=== PATIENT | male | born 1965 | race Caucasian/White ===

== ENCOUNTER → 2018-03-29 08:25 | Outpatient (CLI) | payer OTHER, SELFPAY ==
[2018-03-29 10:08] LABS: BUN Creatinine Ratio 21.8 (6-22); Blood Urea Nitrogen 24 mg/dL (9-20); Calcium 9.1 mg/dL (8.4-10.2); Carbon Dioxide 26 mmol/L (22-32); Chloride 104 mmol/L (98-107); Cholesterol 238 mg/dL (140-199); Estimated Glomerular Filt Rate > 60.0 mL/min (>60); Glucose 92 mg/dL (70-100); HDL Cholesterol 60 mg/dL (40-60); HEMOLYSIS < 15 (0-50); LDL Cholesterol Calculated 151 mg/dL (<100); Potassium 4.4 mmol/L (3.4-5.1); Sodium 143 mmol/L (137-145); Triglycerides 134 mg/dL (35-150)
[2018-03-29 10:39] LABS: TSH w/ Reflex to FT4 2.01 uIU/mL (0.47-4.68)
== END ==
PROVIDERS: PCP Internal Medicine; Visit Provider Internal Medicine
DX: I10 Essential (primary) hypertension (principal); Z12.5 Encounter for screening for malignant neoplasm of prostate; E78.5 Hyperlipidemia, unspecified
CPT/HCPCS: 36415; 80048; 80061; 84153; 84443

== ENCOUNTER 2018-08-04 09:18 | Day surgery (SDC) | payer OTHER, SELFPAY ==
--- NOTE | 2018-08-04 | PATH_ITS ---
[facility] Accession Number: [id number] . 01 Material submitted: . rectum - RECTUM POLYP . 02 Diagnosis: Biopsy, Rectal Polyp: Tubular adenoma involving both biopsy fragments. V/08/07/2018 . 02 Electronically signed: . Jeovanny Gonzalez MD, Pathologist NPI- [id number] . 01 Gross description: . RECTUM POLYP: Received in formalin are 2 fragment(s) of harrell, soft tissue measuring 0.1 x 0.1 x 0.1 cm to 0.3 x 0.2 x 0.2 cm which is entirely submitted and submitted entirely in 1 cassette(s) /DMC /DMC . 02 Pathologist provided ICD-10: D12.8 . 02 CPT . 986571 Performed at: 01 [facility] [address] [id number] MD Jimi Franco MD Phone: [phone] Performed at: 02 [facility] [address] [place], [place] [id number] MD Ashley Mckinney MD Phone: [phone]
[2018-08-04 10:04] VITALS: BP 153/104; PULSE 86; RESP 16; TEMP 36.8; O2SAT 98; BMI 26.4
[2018-08-04] MEDS: SODIUM CHLORIDE 0.9% 1,000 ML 200 ML IV (10:39)
--- NOTE | 2018-08-04 11:11 | P.HP_ITS ---
History of Present Illness Date Patient Seen: 08/04/18 Time Patient Seen: 11:00 Chief complaint: [id number] SCREENING COLONOSCOPY Narrative: Patient is a gentleman here for screening colonoscopy. He had a polyp removed 5 years ago. No family history of colon cancer. Patient History Social History household members: spouse Family & Social History Social History: household members spouse Meds Home Medications Medication Instructions Recorded Confirmed Type No Known Home Medications 08/04/18 08/04/18 History Allergies Allergy/AdvReac Type Severity Reaction Status Date / Time No Known Drug Allergies Allergy Verified 08/04/18 09:59 Review of Systems Review of Systems All systems reviewed & are unremarkable except as noted in HPI and below Exam Vital Signs (past 8 hours): - 08/04/18 10:04 Temperature 98.2 F Pulse Rate 86 Respiratory Rate 16 Blood Pressure 153/104 H Pulse Oximetry 98 Oxygen Delivery Method Room Air Narrative Exam Narrative: Pleasant cooperative patient no apparent distress. Lungs are clear to auscultation. No rales or rhonchi. Heart regular rate and rhythm no murmur gallop. Abdomen is soft nontender without mass. No obvious hernias. Patient is alert and oriented x3. Assessment & Plan Assessment & Plan narrative: The patient for a screening colonoscopy. I have di scussed the procedure with them. Risks of bleeding, perforation which would necessitate major operation, failure to find remove all lesions, the potential tattoo were all discussed. All questions were answered. They wished to proceed.
--- NOTE | 2018-08-04 11:11 | PM.PREOP ---
Pre-operative Note Interval Note History & Physical reviewed/Exam performed by Physician: Yes Changes to H&P: No ASA Class (for procedural sedation): I
[2018-08-04] MEDS: MIDAZOLAM 5 MG/5 ML VIAL IV (11:32)
--- NOTE | 2018-08-04 11:32 | PM.OP.ENDO ---
Operative Date/Time/Diagnoses Date of procedure: 08/04/18 Time of procedure: 11:32 Pre-op diagnosis: Screening exam. History of polyps. Last colonoscopy 5 years ago. Post-op diagnosis: same (One polyp in the rectum.) Procedure & Clinicians Study performed: Colonoscopy with cold biopsy Same procedure as scheduled: Yes Indications: Screening Surgeon: Christo Carter Procedure Notes SCOAP/Timeout: Performed Procedure in detail: The patient was placed in the left lateral decubitus position and underwent IV sedation directed by the surgeon consisting of fentanyl and Versed. Digital exam was unremarkable. Prostate is normal in size. The scope was inserted and advanced through the rectum into the sigmoid, descending, transverse, and ascending colon. No lesions were seen. The cecum was reached identified by the ileocecal valve and the appendiceal opening. The scope was gradually brought out. One Polyp was found at 10 cm from the anal verge in the rectum . It was quite small and completely removed with cold biopsy forceps.. The scope ultimately was retroflexed in the rectum. The appearance was normal. The scope was removed and the patient tolerated the procedure well. prep was very good Scope withdrawal time: 11 minutes Sedation minutes: 18 Findings: polyp (One small polyp in the rectum) Specimen(s): other (Polyp) Complications: none Recommendations: Colonscopy in 5 years Follow up: as needed Disposition: PACU
[2018-08-04] MEDS: fentaNYL 250 MCG/5 ML INJ IV (11:33)
[2018-08-04 11:35] VITALS: BP 143/100; PULSE 90; RESP 16; O2SAT 94
[2018-08-04 11:38] VITALS: BP 164/81; PULSE 90; RESP 17; O2SAT 94
[2018-08-04 11:55] VITALS: BP 129/91; PULSE 79; TEMP 36.1; O2SAT 95
== END 2018-08-04 12:01 | disposition home or self-care (01) ==
PROVIDERS: PCP Internal Medicine; Visit Provider Specialist
PROC: 0DJD8ZZ Inspection of Lower Intestinal Tract, Via Natural or Artificial Opening Endoscopic (ICD-10-PCS; CPT 45378; principal; 2018-08-04 10:45)
DX: Z86.010 Personal history of colon polyps (principal); D12.8 Benign neoplasm of rectum
CPT/HCPCS: 45380; 99152; J2250; J3010

== ENCOUNTER → 2020-02-22 08:27 | Outpatient (CLI) | payer OTHER, SELFPAY ==
[2020-02-22 10:06] LABS: BUN Creatinine Ratio 17.9 (6-22); Blood Urea Nitrogen 20 mg/dL (9-20); Calcium 9.1 mg/dL (8.4-10.2); Carbon Dioxide 27 mmol/L (22-32); Chloride 108 mmol/L (98-107); Cholesterol 205 mg/dL (140-199); Estimated Glomerular Filt Rate > 60.0 mL/min (>60); Glucose 101 mg/dL (70-100); HDL Cholesterol 52 mg/dL (40-60); HEMOLYSIS < 15 (0-50); LDL Cholesterol Calculated 122 mg/dL (<100); Potassium 4.4 mmol/L (3.4-5.1); Sodium 139 mmol/L (137-145); Triglycerides 154 mg/dL (35-150)
[2020-02-22 10:42] LABS: TSH w/ Reflex to FT4 1.92 uIU/mL (0.47-4.68)
[2020-02-23 07:27] LABS: PSA, Total 0.7 ng/mL (0.0-4.0)
== END ==
PROVIDERS: PCP Internal Medicine; Referring Provider Internal Medicine; Visit Provider Internal Medicine
DX: Z00.00 Encounter for general adult medical examination without abnormal findings (principal); I10 Essential (primary) hypertension; E78.5 Hyperlipidemia, unspecified
CPT/HCPCS: 36415; 80048; 80061; 84153; 84154; 84443

== ENCOUNTER → 2020-10-30 11:19 | Outpatient (CLI) | payer OTHER, SELFPAY ==
--- NOTE | 2020-10-30 | DI.RAD.S_ITS ---
PROCEDURE: XR ANKLE LT MIN 3V INDICATIONS: Pain in left ankle and joints of left foot TECHNIQUE: 3 views of the ankle were acquired. COMPARISON: None. FINDINGS: Bones: The medial malleolus has a osseous density just distal to the medial malleolar tip with no overlying soft tissue swelling probably related to a remote avulsion. No other fractures or dislocations. Ankle mortise is normally aligned. No suspicious bony lesions. Soft tissues: No tibiotalar joint effusion. Achilles tendon appears normal. IMPRESSION: Osseous density just distal to the medial malleolar tip possibly an an acute versus remote avulsion fracture, please correlate with point tenderness. Dictated by: Flo Shah M.D. on 10/30/2020 at 15:40 Approved by: Flo Shah M.D. on 10/30/2020 at 15:43
== END ==
PROVIDERS: PCP Internal Medicine; Referring Provider Internal Medicine; Visit Provider Internal Medicine
DX: M25.572 Pain in left ankle and joints of left foot (principal); G89.29 Other chronic pain
CPT/HCPCS: 73610

== ENCOUNTER → 2023-05-11 09:58 | Outpatient (CLI) | payer OTHER, SELFPAY ==
[2023-05-11 11:02] LABS: Add Manual Diff / Slide Review NO; Basophils Absolute Auto 0 /uL (0-100); Basophils Percent Auto 0.4 % (0-2); Eosinophils Absolute Auto 100 /uL (0-450); Eosinophils Percent Auto 1.2 % (2-4); Hematocrit 44.5 % (41-53); Hemoglobin 15.1 g/dL (13.5-17.5); Lymphocytes Absolute Auto 1900 /uL (1100-4500); Lymphocytes Percent Auto 28.3 % (25-40); Mean Corpuscular HGB Conc 33.8 % (30-36); Mean Corpuscular Hemoglobin 30.3 PG (26-34); Mean Corpuscular Volume 89.6 fL (80-100); Monocytes Absolute Auto 600 /uL (0-900); Monocytes Percent Auto 8.1 % (3-14); Neutrophils Absolute Auto 4200 /uL (1500-7000); Platelet Count 303 X10^3/uL (150-400); Red Blood Cell Count 4.96 X10^6/uL (4.5-5.9); Red Cell Distribution Width 12.8 % (11.6-14.8); White Blood Cell Count 6.8 X10^3/uL (4.5-11.0)
[2023-05-11 11:25] LABS: Alanine Aminotransferase 27 IU/L (<50); Albumin 4.6 g/dL (3.5-5.0); Albumin Globulin Ratio 1.5 (1.0-2.8); Alkaline Phosphatase 54 U/L (38-126); Aspartate Aminotransferase 30 IU/L (17-59); BUN Creatinine Ratio 18.5 (6-22); Blood Urea Nitrogen 20 mg/dL (9-20); Calcium 9.8 mg/dL (8.4-10.2); Carbon Dioxide 25 mmol/L (22-32); Chloride 104 mmol/L (98-107); Cholesterol 155 mg/dL (140-199); Estimated Glomerular Filt Rate > 60 mL/min (>60); Glucose 97 mg/dL (80-110); HDL Cholesterol 67 mg/dL (40-60); HEMOLYSIS < 15 (0-50); LDL Cholesterol Calculated 68 mg/dL (<100); Potassium 4.8 mmol/L (3.4-5.1); Sodium 138 mmol/L (137-145); Total Protein 7.6 g/dL (6.3-8.2); Triglycerides 101 mg/dL (35-150)
[2023-05-11 11:28] LABS: High Sensitivity CRP - Cardiac 0.7 mg/L (1.0-3.0)
[2023-05-11 11:52] LABS: Prostate Specific Antigen 3.99 ng/mL (0.10-4.00)
[2023-05-14 07:58] LABS: PSA Free % 19.7 % (.); PSA, Total 2.9 ng/mL (0.0-4.0)
== END ==
LOC: LAB 10:02
PROVIDERS: PCP Family Medicine; Referring Provider Family Medicine; Visit Provider Family Medicine
DX: Z00.00 Encounter for general adult medical examination without abnormal findings (principal); E78.5 Hyperlipidemia, unspecified; N52.9 Male erectile dysfunction, unspecified; I10 Essential (primary) hypertension
CPT/HCPCS: 36415; 80053; 80061; 84153; 84154; 85025; 86140

== ENCOUNTER → 2024-06-28 09:15 | Outpatient (CLI) | payer BC, SELFPAY ==
[2024-06-28 10:29] LABS: HEMOLYSIS < 15 (0-50)
[2024-06-28 10:37] LABS: Alanine Aminotransferase 32 IU/L (<50); Albumin 4.8 g/dL (3.5-5.0); Albumin Globulin Ratio 1.5 (1.0-2.8); Alkaline Phosphatase 63 U/L (38-126); Aspartate Aminotransferase 38 IU/L (17-59); BUN Creatinine Ratio 15.2 (6-22); Bilirubin Total 3.2 mg/dL (0.2-1.3); Blood Urea Nitrogen 21 mg/dL (9-20); Carbon Dioxide 28 mmol/L (22-32); Chloride 101 mmol/L (98-107); Cholesterol 216 mg/dL (140-199); Estimated Glomerular Filt Rate 58 mL/min (>60); Globulin 3.2 g/dL (1.7-4.1); Glucose 99 mg/dL (80-110); HDL Cholesterol 86 mg/dL (40-60); LDL Cholesterol Calculated 104 mg/dL (<100); Potassium 4.8 mmol/L (3.4-5.1); Sodium 139 mmol/L (137-145); Triglycerides 129 mg/dL (35-150)
[2024-06-28 10:48] LABS: Gamma Glutamyl Transpeptidase 29 U/L (15-73)
[2024-06-28 12:15] LABS: Prostate Specific Antigen Scrn 5.18 ng/mL (0.1-4.0)
[2024-06-29 03:39] LABS: CRP, High Sensitivity 0.94 mg/L (0.00-3.00)
[2024-06-29 09:09] LABS: Insulin Level Total 6.9 uIU/mL (2.6-24.9)
== END ==
PROVIDERS: PCP Family Medicine; Referring Provider Family Medicine; Visit Provider Family Medicine
DX: Z00.01 Encounter for general adult medical examination with abnormal findings (principal); E78.5 Hyperlipidemia, unspecified; R17 Unspecified jaundice; R97.20 Elevated prostate specific antigen [PSA]; I10 Essential (primary) hypertension; N52.9 Male erectile dysfunction, unspecified; Z12.5 Encounter for screening for malignant neoplasm of prostate
CPT/HCPCS: 36415; 80053; 80061; 82248; 82977; 83525; 84402; 84403; 86140; G0103

== ENCOUNTER → 2024-07-11 13:50 | Outpatient (CLI) | payer BC, SELFPAY ==
[2024-07-13 12:38] LABS: Fecal Immunochemical Test Negative (Negative)
== END ==
PROVIDERS: PCP Family Medicine; Referring Provider Family Medicine; Visit Provider Family Medicine
DX: Z12.11 Encounter for screening for malignant neoplasm of colon (principal)
CPT/HCPCS: 82274

== ENCOUNTER → 2024-08-21 15:09 | Outpatient (CLI) | payer BC, SELFPAY ==
[2024-08-21 15:53] LABS: Add Manual Diff / Slide Review NO; Basophils Absolute Auto 0 /uL (0-100); Basophils Percent Auto 0.4 % (0-2); Eosinophils Absolute Auto 100 /uL (0-450); Eosinophils Percent Auto 0.7 % (2-4); Hematocrit 47.2 % (41-53); Lymphocytes Absolute Auto 1800 /uL (1100-4500); Lymphocytes Percent Auto 22.4 % (25-40); Mean Corpuscular HGB Conc 33.9 % (30-36); Mean Corpuscular Hemoglobin 30.7 PG (26-34); Mean Corpuscular Volume 90.6 fL (80-100); Monocytes Absolute Auto 500 /uL (0-900); Monocytes Percent Auto 5.9 % (3-14); Neutrophils Absolute Auto 5500 /uL (1500-7000); Neutrophils Percent Auto 70.6 % (50-75); Platelet Count 306 X10^3/uL (150-400); Red Cell Distribution Width 13.1 % (11.6-14.8); White Blood Cell Count 7.8 X10^3/uL (4.5-11.0)
[2024-08-21 16:21] LABS: Alanine Aminotransferase 32 IU/L (<50); Albumin Globulin Ratio 1.7 (1.0-2.8); Alkaline Phosphatase 62 U/L (38-126); Aspartate Aminotransferase 34 IU/L (17-59); BUN Creatinine Ratio 17.8 (6-22); Bilirubin Total 2.8 mg/dL (0.2-1.3); Blood Urea Nitrogen 21 mg/dL (9-20); Calcium 9.7 mg/dL (8.4-10.2); Carbon Dioxide 25 mmol/L (22-32); Chloride 103 mmol/L (98-107); Estimated Glomerular Filt Rate > 60 mL/min (>60); Globulin 2.9 g/dL (1.7-4.1); Glucose 101 mg/dL (70-99); HEMOLYSIS < 15 (0-50); Potassium 4.5 mmol/L (3.4-5.1); Sodium 138 mmol/L (137-145); Total Protein 7.9 g/dL (6.3-8.2)
[2024-08-21 16:56] LABS: Prostate Specific Antigen Scrn 4.98 ng/mL (0.1-4.0)
[2024-08-24 07:41] LABS: PSA Free % 18.6 % (.); PSA, Total 2.9 ng/mL (0.0-4.0)
== END ==
PROVIDERS: PCP Family Medicine; Referring Provider Family Medicine; Visit Provider Family Medicine
DX: Z00.01 Encounter for general adult medical examination with abnormal findings (principal); R97.20 Elevated prostate specific antigen [PSA]; R17 Unspecified jaundice; I10 Essential (primary) hypertension; E78.5 Hyperlipidemia, unspecified; Z12.5 Encounter for screening for malignant neoplasm of prostate
CPT/HCPCS: 36415; 80053; 84153; 84154; 85025; G0103

== ENCOUNTER → 2025-03-18 09:42 | Outpatient (CLI) | payer BC, SELFPAY | PROVIDERS: PCP Family Medicine; Referring Provider Family Medicine; Visit Provider Urology | DX: R97.20 Elevated prostate specific antigen [PSA] (principal) | CPT/HCPCS: 36415; 84153; 84154 ==

== ENCOUNTER → 2025-04-08 08:29 | Outpatient (CLI) | payer BC, SELFPAY ==
--- NOTE | 2025-04-08 08:31 | DI.MRI.S_ITS ---
PROCEDURE: MR PELVIC PROSTATE PROTOCOL INDICATIONS: 60 y/o M w/ elevated PSA, please eval TECHNIQUE: Coronal HASTE, axial T1 FSE with fat saturation, 3-plane nonbreath-hold T2 FSE. After the administration of contrast, dynamic axial, delayed axial and coronal VIBE or 2-D FLASH with fat saturation through the pelvis. Diffusion weighted imaging and ADC was performed. COMPARISON: None. FINDINGS: Image quality: Diffusion weighted and dynamic contrast enhanced images are diagnostic. Prostate: Gland size is 5.6 x 4.7 x 6.1 cm; ellipsoid gland volume is 83.5 mL. PSA density is 0.0635 Transitional zone heterogenous nodules are present, either well encapsulated or mostly encapsulated, compatible with PI-RADS 1 or 2 likely BPH nodules. There is a 5 mm lesion in the right apex peripheral zone (image 5/18). DWI score 3. T2 score 3. DCE negative. PI-RADS 3. No extracapsular disease. Seminal vesicles appear clear. Genitourinary system: Under distended urinary bladder. No distal hydronephrosis Bowel and peritoneum: Colonic diverticula are seen. No drainable abscess or ascites Nodes and vessels: No aneurysmal artery identified. No lymph nodes enlarged by size criteria. Soft tissues: Pelvic wall appears unremarkable Bones: No aggressive appearing osseous finding. IMPRESSION: 0.5 cm PI-RADS 3 lesion is seen at the right apex peripheral zone. Otherwise, no high suspicion lesion identified to indicate clinically significant prostate adenocarcinoma. Background prostatomegaly and BPH are present No pelvic lymphadenopathy by size criteria. No aggressive osseous abnormality. Dictated by: Jony España M.D. on 04/08/2025 at 10:56 Approved by: Jony España M.D. on 04/08/2025 at 11:00
== END ==
LOC: MRI 08:30
PROVIDERS: PCP Family Medicine; Referring Provider Urology; Visit Provider Urology
DX: N40.0 Benign prostatic hyperplasia without lower urinary tract symptoms (principal); N42.9 Disorder of prostate, unspecified; R97.20 Elevated prostate specific antigen [PSA]
CPT/HCPCS: 72197; A9579